=== PATIENT | female | born 1945 | race Caucasian/White ===

== ENCOUNTER 2019-05-25 20:21 | Emergency (ER) | payer OTHER ==
[2019-05-25 20:44] VITALS: BP 156/65; PULSE 60; TEMP 97.5; BMI 21.6
--- NOTE | 2019-05-25 21:14 | PDOC ---
History of Present Illness - General Chief Complaint: Injury Stated Complaint: RS HEAD LACERATION Time Seen by Provider: 05/25/19 21:14 - History of Present Illness Initial Comments: HPI: 73yo F with PMH of GERD, DVT of RLE, HTN, HLD, Depression, Overactive bladder sent by [facility] for evaluation of fall. Per half-way, patient was found on the floor sitting with a significant laceration on her forehead. At baseline, patient is confused and an unreliable historian. On aspirin, but no other anticoagulants. Patient without acute complaints. No nausea or vomiting. History limited due to patient's confusion. ROS: unable to complete (patient confused) PE: General: Awake, alert, and oriented x 1 (can state name, but not age/place/time), in no acute distress Head: 6cm V-shaped laceration on forehead above right eye, hemostatic Eyes: EOMI, sclera anicteric ENT: Moist mucus membranes Neck: Normal ROM, supple Lungs: Lungs clear, Normal breath sounds Cardio: Regular rhythm, S1 and S2 present Abdomen: Soft, nontender. No guarding, no rebound, no masses Extremities: Normal range of motion, Distal pulses present, no tenderness upon rocking pelvis Skin: Warm, Dry, normal turgor Neurologic: Cranial nerves II through XII grossly intact. Normal speech ED Course/MDM: DDX including but not limited to brain bleed, laceration, syncope CT Head CT Cspine Boostrix Laceration will require repair 05/25/19 21:14 Call to [facility] [phone] Spoke with Miss Curiel, ext [phone] Patient wanders and is hard to re-direct. Fell face first on the floor. Usually ambulates on her own without a cane or walker Last tetanus unknown At baseline is confused on ASA 05/25/19 21:21 Patient resting in stretcher Pending CT reports 05/25/19 22:41 CT Head: " EXAM#: TYPE/EXAM: RESULT: [id number] CT/HEAD CT WITHOUT CONTRAST Cranial CT without contrast Clinical information: status post fall No CT evidence of intracranial injury or calvarial fracture. There is no extra-axial fluid collection. No obvious mass lesion or infarct is noted. Involutional changes are seen with mild ventricular dilatation. Impression: No CT evidence of acute intracranial pathology. Reported By: Kevin South MD 05/25/192229 " CT Cspine: " EXAM#: TYPE/EXAM: RESULT: [id number] CT/CERVICAL SPINE CT W/O CONTR Cervical spine CT without contrast Clinical information: status post fall Multiplanar imaging was performed. No fracture or posttraumatic malalignment is noted. Multilevel degenerative disc and facet joint changes are seen. The perivertebral soft tissues demonstrate no obvious pathology. Impression: No fracture is identified. Reported By: Kevin South MD 05/25/192235 " Pending laceration repair 05/25/19 22:54 Call to [facility] [phone] Spoke with Miss Curiel, ext [phone], regarding patient's discharge back to [facility] 05/25/19 23:09 Laceration repair performed by Dr. Grace. Please see procedure note. CT head/cspine negative for acute pathology Return precautions Stable for discharge 05/26/19 00:25 Past History - Past Medical History Allergies/Adverse Reactions: Allergies Allergy/AdvReac Type Severity Reaction Status Date / Time No Known Allergies Allergy Verified 05/25/19 21:38 - Psycho Social/Smoking Cessation Hx Smoking History: Never smoked Hx Alcohol Use: No Drug/Substance Use Hx: No *Physical Exam - Vital Signs Last Vital Signs Temp Pulse Resp BP Pulse Ox 97.5 F L 60 19 156/65 95 05/25/19 20:35 05/25/19 20:35 05/25/19 20:35 05/25/19 20:35 05/25/19 20:35 Procedures - Laceration/Wound Repair Face Wound Length: 5.0 to 7.5 cm Wound Explored: clean Wound's Depth, Shape: flap Irrigated w/ Saline: Yes Anesthesia: 1% Lidocaine w/ Epi Wound Repaired With: Sutures Suture Size/Type: 6:0 (monocryl) Number of Sutures: 11 Progress: Small amount of dermabond placed to ensure good cosmesis and infection prevention Procedure performed by Dr. Grace 05/26/19 00:23 Discharge - Discharge Information Problems reviewed: Yes Clinical Impression/Diagnosis: Laceration Fall Qualifiers: Encounter type: initial encounter Qualified Code(s): W19.XXXA - Unspecified fall, initial encounter Condition: Improved Disposition: HOME - Follow up/Referral Referrals: Junaid Noel [Primary Care Provider] - - Patient Discharge Instructions Patient Printed Discharge Instructions: DI for Laceration Repair -- Simple, How to Prevent Falls Additional Instructions: You came into the emergency department after a fall. We performed a CT scan of your head and neck which did not indicate acute pathology. The wound was cleaned and you received stitches. Keep the area clean. You got a tetanus shot called Boostrix today. Keep note of this date 05/25/2019. For the first 24 hours, please keep the stitches site DRY. After the first 24 hours, you can allow soap and water to run gently over the area. DO NOT scrub the ervin. DO NOT soak the area. Apply antibiotic ointment daily to the wound. RETURN to the ED if there is: redness or hardness around the wound, pain or tenderness, a red streak, yellow or green discharge oozing from the wound, fever or chills. Wound check and stitches removal should be performed in 5-7 days. You can follow up with your primary care doctor (if they perform this) or return to the Emergency Department. Immediate medical attention is required if you experience: severe headache, fever and chills, nausea and vomiting, lightheadedness, inability to breathe or very rapid breathing, rapid irregular heartbeat, chest pain, or trouble breathing. If you think you are having an emergency, call for emergency medical services or present to the emergency department right away - Post Discharge Activity
[2019-05-25] MEDS ORDERED: DIPHTH,PERTUSS(ACELL),TET 0.5 ML DISP.SYRIN IM ONE ×2 (21:29→21:37)
--- NOTE | 2019-05-25 21:35 | PDOC ---
Documentation entered by Sushil York SCRIBE, acting as scribe for Shagufta De La Cruz MD. Shagufta De La Cruz MD: This documentation has been prepared by the Ernie casillas Xhesika, SCRIBE, under my direction and personally reviewed by me in its entirety. I confirm that the documentation accurately reflects all work, treatment, procedures, and medical decision making performed by me. Attending Attestation - Resident Resident Name: Maria Del Rosario Ga - ED Attending Attestation I have performed the following: I have examined & evaluated the patient, The case was reviewed & discussed with the resident, I agree w/resident's findings & plan, Exceptions are as noted - HPI HPI: 05/25/19 21:21 The patient is a 73 y/o F with a PMH of GERD, DVT of RLE, HTN, HLD, Depression, Overactive bladder who presents to the ED [facility] from [facility] for R head laceration s/p fall. Per correction, patient was found on the floor. Patient is a poor historian and history is limited due to patients clinical condition. Allergies: NKDA - Physicial Exam PE: 05/25/19 21:30 Thin 73-year-old female brought by ambulance with a large laceration to her forehead 05/25/19 21:30 head there is a 6 cm wedged shaped full thickness laceration above her right eye neck no midline cervical vertebral tenderness appreciated but lungs cta b/l cvs [id number] abd nontender extremities no deformities skin warm and dry neuro alert,conversant - Medical Decision Making 05/25/19 21:34 pt found down in correction with large forehead laceration plan tetanus/ct scan/ wound repair 05/25/19 23:05 CAT scan of the head is negative for any acute cranial pathology, no skull fracture, no intracranial bleed CAT scan cervical spine is negative for any fracture or subluxation Patient received tetanus and will be discharged back to the correction after her wound is cleaned and closed Discharge - Discharge Information Problems reviewed: Yes Clinical Impression/Diagnosis: Fall Qualifiers: Encounter type: initial encounter Qualified Code(s): W19.XXXA - Unspecified fall, initial encounter Condition: Fair - Follow up/Referral Referrals: Junaid Noel [Primary Care Provider] - - Patient Discharge Instructions Patient Printed Discharge Instructions: DI for Laceration Repair -- Simple, How to Prevent Falls Additional Instructions: You came into the emergency department after a fall. We performed a CT scan of your head and neck which did not indicate acute pathology. The wound was cleaned and you received stitches. Keep the area clean. You got a tetanus shot called Boostrix today. Keep note of this date 05/25/2019. For the first 24 hours, please keep the stitches site DRY. After the first 24 hours, you can allow soap and water to run gently over the area. DO NOT scrub the ervin. DO NOT soak the area. Apply antibiotic ointment daily to the wound. RETURN to the ED if there is: redness or hardness around the wound, pain or tenderness, a red streak, yellow or green discharge oozing from the wound, fever or chills. Wound check and stitches removal should be performed in 5-7 days. You can follow up with your primary care doctor (if they perform this) or return to the Emergency Department. Immediate medical attention is required if you experience: severe headache, fever and chills, nausea and vomiting, lightheadedness, inability to breathe or very rapid breathing, rapid irregular heartbeat, chest pain, or trouble breathing. If you think you are having an emergency, call for emergency medical services or present to the emergency department right away - Post Discharge Activity
== END 2019-05-26 02:43 | disposition home or self-care (01) ==
LOC: JER 20:21
PROC: 0HQ1XZZ Repair Face Skin, External Approach (ICD-10-PCS; principal; 2019-05-25)
DX: S01.81XA Laceration without foreign body of other part of head, initial encounter (principal); W19.XXXA Unspecified fall, initial encounter
CPT/HCPCS: 12013; 70450-TC; 72125-TC; 90715; 99284-25